=== PATIENT | male | born 1965 | race Caucasian/White ===

== ENCOUNTER 2023-05-16 05:41 | Day surgery (SDC) | payer MEDICARE, OTHER ==
[~2023-05-16 05:41] MED LIST: ACETAMINOPHEN TAB 500 MG TAB PO PRN; HEPARIN SODIUM,PORCINE/PF 5,000 UNIT/0.5 ML SYRINGE SQ PRN; Pre Op ABX Message 1 EACH MISC MISCELLANE ONE
[2023-05-16] MEDS ORDERED: SCOPOLAMINE 1 MG/72 HR PATCH TRANSDERM ONE (05:56)
[2023-05-16] MEDS ORDERED: ONDANSETRON 4 MG/2 ML VIAL IVP ONE ×2 (05:56→07:01)
[2023-05-16] MEDS ORDERED: LACTATED RINGERS 1,000 ML IV SCH (05:56)
[2023-05-16] MEDS ORDERED: DEXAMETHASONE SOD PHOSPHATE 4 MG/ML 1 ML VIAL IV ONE (05:56)
[2023-05-16] MEDS ORDERED: METOCLOPRAMIDE 5 MG/ML 2 ML VIAL IVP PRN (07:00)
[2023-05-16] MEDS ORDERED: HYDROmorphone 0.5 MG/0.5 ML SYRINGE IVP PRN (07:00)
[2023-05-16] MEDS ORDERED: DEXAMETHASONE SOD PHOSPHATE 4 MG/ML 1 ML VIAL IVP ONE (07:01)
[2023-05-16] MEDS ORDERED: LACTATED RINGERS 1,000 ML IV ONE (07:01)
[2023-05-16] MEDS ORDERED: ROCURONIUM 10 MG/ML (5 ML VIAL) IV ONE (07:07)
[2023-05-16] MEDS ORDERED: SODIUM CHLORIDE 0.9% 50 ML with ceFAZolin 1,000 MG IV ONE ×2 (07:07)
[2023-05-16] MEDS ORDERED: LIDOCAINE 2% INJ 20 MG/ML (2 ML VIAL) ONE (07:07)
[2023-05-16] MEDS ORDERED: fentaNYL (PF) 50 MCG/ML 2 ML AMP ONE (07:07)
[2023-05-16] MEDS ORDERED: NEOSTIGMINE 1 MG/ML 10 ML VIAL ONE (07:07)
[2023-05-16] MEDS ORDERED: GLYCOPYRROLATE 0.2 MG/ML 2 ML VIAL ONE (07:07)
[2023-05-16] MEDS ORDERED: KETOROLAC 15 MG/ML 1 ML VIAL ONE (07:07)
[2023-05-16] MEDS ORDERED: MIDAZOLAM 2 MG/2 ML VIAL ONE (07:07)
[2023-05-16] MEDS ORDERED: ePHEDrine 50 MG/ML 1 ML VIAL ONE (07:07)
[2023-05-16] MEDS ORDERED: PROPOFOL 10 MG/ML 20 ML VIAL IV ONE (07:07)
[2023-05-16] MEDS ORDERED: SODIUM CHLORIDE 0.9% 100 ML BAG ONE (07:35)
[2023-05-16] MEDS ORDERED: ceFAZolin 1,000 MG VIAL ONE (07:35)
[2023-05-16] MEDS ORDERED: BUPIVACAINE (PF) 0.25% 30 ML VIAL SQ ONE ×3 (07:36)
[2023-05-16] MEDS ORDERED: NALOXONE 0.4 MG/ML 1 ML VIAL IV PRN (08:13)
[2023-05-16] MEDS ORDERED: ACETAMINOPHEN TAB 325 MG TAB PO PRN (08:13)
--- NOTE | 2023-05-16 08:18 | P.OP ---
Date of Procedure: 05/16/23 Procedure(s) Performed: PREOPERATIVE DIAGNOSIS: Left chest wall mass, left posterior neck mass POSTOPERATIVE DIAGNOSIS: Same PROCEDURE: Excision left chest wall and left posterior neck mass with intermediate closure SURGEON: Nita EBL: Christian Oh ANESTHESIA: General COMPLICATIONS: None OPERATIVE PROCEDURE: Gen. patient place in the right decubitus position after general anesthesia was achieved. The left chest and left posterior neck were prepped and draped sterilely. First the left chest wall lesion was addressed. A horizontal incision was made overlying the palpable mass. The subcutaneous tissues were dissected using electrocautery. The lipomatous mass was seen and this was noted to extend beneath the fascia. This is carefully dissected using blunt dissection and cautery. This measured 4 x 3 cm in size. The subcutaneous tissues were closed using interrupted 3-0 Vicryl sutures. The skin was closed using a running 4-0 Monocryl sutures. Intermediate closure length of 4 cm. The neck was then addressed. A horizontal incision was made overlying the palpable mass in the left posterior neck. As we dissected the superficial subcutaneous tissues I was expecting to encounter a sebaceous cyst from the history. Instead we encountered a indurated piece of fatty tissue. Appeared to be a firm lipomatous mass. This extended down to the fascia but did not penetrate through the fascia. This was fully excised using both blunt dissection and cautery. It was more difficult at this lesion to delineate the margins. The area was irrigated. No additional palpable masses were noted. The subcutaneous tissues were closed using interrupted 3-0 Vicryl sutures. The skin was closed using a running 4-0 Monocryl stitch. Intermediate closure length 4 cm. Skin glue and sterile dressings applied to both locations. DISPOSITION: Stable to recovery room
[2023-05-16 08:26] VITALS: TEMP 97.2
[2023-05-16 09:19] VITALS: BP 191/92; PULSE 90; RESP 20
== END 2023-05-16 09:38 | disposition home or self-care (01) ==
LOC: OR 05:41
PROVIDERS: ATTEND Surgery
DX: D17.0 Benign lipomatous neoplasm of skin and subcutaneous tissue of head, face and neck (principal); L72.3 Sebaceous cyst; I10 Essential (primary) hypertension; E78.5 Hyperlipidemia, unspecified; F41.9 Anxiety disorder, unspecified; Z79.899 Other long term (current) drug therapy
CPT/HCPCS: 88304; 11406; 22900; J2250; J1100; J2710; J2405; J0690; J3010; J1885; J2704; J1644; J2001